=== PATIENT | male | born 1955 | race Caucasian/White ===

== ENCOUNTER 2023-04-25 09:44 | Outpatient (CLI) | payer MEDICARE, SELFPAY ==
--- NOTE | 2023-04-25 09:52 | USR_ITS ---
PROCEDURE INFORMATION: Exam: US Duplex Bilateral Lower Extremity Arteries Exam date and time: 04/25/2023 10:04 AM Age: 67 years old Clinical indication: Other: Claudication; Additional info: Intermittent claudication of bilateral lower limbs TECHNIQUE: Imaging protocol: Real-time ultrasound scan of the arteries of the bilateral lower extremities with 2-D dodd scale, color Doppler flow and spectral waveform analysis. Images documented and saved. COMPARISON: No relevant prior studies available. FINDINGS: Right iliac artery: Calcification without occlusion or high-grade stenosis. Normal waveform. Right common femoral artery: No occlusion or high-grade stenosis. Normal waveform. Right profunda femoris artery: Proximal interrogated segment is patent with normal waveform. Right superficial femoral artery: Occluded. Right popliteal artery: Occluded. Right calf/foot arteries: Occluded anterior and posterior tibial arteries. Occluded dorsalis pedis artery. Peroneal artery not interrogated. Left iliac artery: Interrogated proximal left iliac artery at the level of the bifurcation is narrowed with monophasic waveform. Subsequent occlusion. Left common femoral artery: Occluded. Left profunda femoris artery: Not interrogated. Left superficial femoral artery: Occluded. Left popliteal artery: Occluded. Left calf/foot arteries: Occluded anterior and posterior tibial arteries as well as the peroneal artery and dorsalis pedis artery. US/CV arterial duplex [facility] [id number] IMPRESSION: Extensive bilateral lower extremity arterial occlusion as above.
== END 2023-04-25 09:45 | disposition home or self-care (01) ==
PROVIDERS: PCP Family Medicine; Visit Provider Family Medicine
DX: I70.213 Atherosclerosis of native arteries of extremities with intermittent claudication, bilateral legs (principal)
CPT/HCPCS: 93925

== ENCOUNTER 2025-02-03 06:39 | Outpatient (CLI) | payer MEDICARE, SELFPAY ==
--- NOTE | 2025-02-03 06:51 | CTR_ITS ---
PROCEDURE INFORMATION: Exam: CT Neck With Contrast Exam date and time: 02/03/2025 7:20 AM Age: 69 years old Clinical indication: Dysphagia / difficulty swallowing; All over neck swelling causing difficulty with swallowing and SOB x 2 months. PT has had a round of antibiotics with no improvement; Additional info: Neoplasm uncertain behavior oropharynx TECHNIQUE: Imaging protocol: Computed tomography of the neck with contrast. Radiation optimization: All CT scans at this facility use at least one of these dose optimization techniques: automated exposure control; mA and/or kV adjustment per patient size (includes targeted exams where dose is matched to clinical indication); or iterative reconstruction. Contrast material: OMNI 350; Contrast volume: 100 ml; Contrast route: INTRAVENOUS (IV); COMPARISON: No relevant prior studies available. RADIATION DOSE METRICS: Total DLP (mGy-cm): 140.94 FINDINGS: Salivary glands: Normal. Glands are normal in size. Pharynx: 3.9 cm mass from the left lateral wall of the oropharynx. This is likely a neoplastic process. Larynx: Unremarkable. Epiglottis is normal. Thyroid: Normal. No enlarged or calcified nodules. Trachea: Visualized trachea is unremarkable. Lungs: Unremarkable as visualized. Lymph nodes: Cervical adenopathy is present as well. The largest lymph node is 1.4 x 1.1 cm in size. There is a mass within the medial aspect of the left sternocleidomastoid muscle (4:39) and this measures approximately 2 cm in maximum dimension. It could represent either local invasion or adenopathy. 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 Bones/joints: Unremarkable. No acute fracture. Soft tissues: See Lymph nodes finding. CT/CT neck w con* [id number] IMPRESSION: Oropharyngeal mass with metastases.
[2025-02-03 07:18] LABS: Blood Urea Nitrogen 10 mg/dL (8-23)
[2025-02-03] MEDS: iohexol 350 mg/mL 500 mL Btl (per mL) IV (07:23)
== END 2025-02-03 06:40 | disposition home or self-care (01) ==
LOC: RAD 06:42
PROVIDERS: Radiology Neuroradiology; PCP Family Medicine; Visit Provider Otolaryngology
DX: D37.05 Neoplasm of uncertain behavior of pharynx (principal)
CPT/HCPCS: 70491; 82565; 84520

== ENCOUNTER 2025-03-06 14:52 | Outpatient (CLI) | payer MEDICARE, SELFPAY ==
--- NOTE | 2025-03-06 15:09 | PETR_ITS ---
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 Then, PET images were obtained. Attenuation corrected images were constructed using the CT scan. Fused images of PET and CT were reviewed. The standardized uptake values (SUV) reported below are maximum values within a region of interest, expressed in gm/ml. Exam includes orbital meatal line to mid-thigh. SUV normalization method: BodyWeight Radiopharmaceutical: 10.62 mCi F-18 FDG (Fluorodeoxyglucose), IV. Time of imaging post radiopharmaceutical administration: 45 minutes Injection site: RIGHT AC COMPARISON: CT neck w con* [id number] 02/03/2025 7:20 AM FINDINGS: Brain: No abnormal increased uptake in the visualized brain is noted. Regions of photopenia/lack of uptake are identified in the posterior left parietal lobe corresponding to regions of encephalomalacia/volume loss. Pharynx: A radiotracer avid 3.4 x 2.6 cm left oropharyngeal mass demonstrates an SUV max 26.8 on series 301, image 55. Larynx: No abnormal uptake. Lungs, pleura and trachea: No abnormal uptake. A left lung calcified granuloma is noted. A non radiotracer avid solid 3 mm posterior right upper lobe nodule on CT image 103 is identified. A pleural-based solid right middle lobe nodule measures 3 mm on image 139. An anterior right middle lobe nodule on the minor fissure measures 6 mm on image 139. A 2 mm solid nodule in the left upper limb on image 139 is present. Dependent streaky density in the lower lobes likely represents atelectasis or scarring. Heart: Normal physiologic uptake. Mediastinal space: No abnormal uptake. Liver: No abnormal uptake. Gallbladder and biliary ducts: No abnormal uptake. Pancreas: No abnormal uptake. Spleen: No abnormal uptake. Adrenal glands: There is uptake in the bilateral adrenal glands without definite nodularity, SUV max 3.0 on the right on image 172 and SUV max 3.4 on the left on image 177. Kidneys and ureters: Normal physiologic uptake. A low-density non radiotracer avid lesion arising from the left renal inferior pole measuring 5.1 x 4.[address] image 202 is noted likely related to a benign cyst. Stomach and bowel: No abnormal uptake. Reproductive: There is moderate prominence of the prostate gland without definitive evidence of focal abnormal uptake. Vasculature: No abnormal uptake. Multifocal regions of atherosclerotic calcification are identified including within the coronary arteries. Lymph nodes: Radiotracer avid left sided cervical lymph nodes are noted deep to the sternocleidomastoid muscle, SUV max 12.4, the largest and most radiotracer avid of which measures 1.6 cm in short axis on series 202, image 62. This may be reactive, secondary to infectious or inflammatory involvement. These lymph nodes are superior to the level of the hyoid bone and extend posterior to the left parotid gland. A radiotracer avid right axillary lymph node is present, SUV max 3.8 measuring 1.2 x 0.6 cm on series 301, image 107. Uptake in a left axillary lymph node is noted, SUV max 2.2 on image 115 measuring 1.7 x 0.4 cm on series 202, image 116. A precarinal lymph node demonstrates elevated uptake, SUV max 2.8 on image 114 measuring 7 mm in short axis on CT image 114. An inferior right pretracheal lymph node measures 1.1 x [address] image 111, SUV max 3.0. A right hilar lymph node is radiotracer avid, SUV max 3.9 on image 119. Elevated uptake in the left hilar lymph node is present, SUV max 4.5 on image 113. The size of the hilar lymph nodes is not well delineated without intravenous contrast, however, these lymph nodes do not appear pathologically enlarged. Skeleton: The bones appear demineralized. Focal elevated uptake is noted in the region of the inferior clivus on image 49 (SUV max 6.2) without a definite correlating lesion on the CT images. Uptake between the odontoid process and anterior ring of C1 is likely related to degenerative inflammatory changes, and this uptake appears separate from a more inferiorly located small benign-appearing cystic structure along the anterior aspect of the odontoid process. Soft tissues: No abnormal uptake in the visualized head, neck, chest, abdomen, pelvis, and extremities. METRICS: Mediastinal blood pool: SUV max 2.4, SUV mean 2.2 Liver uptake: SUV max 3.0, SUV mean 2.6 PET/PET skull to thigh INIT [id number] IMPRESSION: 1. A left oropharyngeal mass is radiotracer avid consistent with malignancy. 2. Radiotracer avid left-sided cervical lymph nodes are consistent with metastases. 3. Uptake within non pathologically enlarged bilateral axillary lymph nodes and within non pathologically enlarged mediastinal and bilateral hilar lymph nodes is noted, which can be related to infectious or inflammatory involvement or metastases. 4. Focal elevated uptake in the inferior clivus is noted without a definite correlating lesion on the CT images. This uptake may be inflammatory in nature. A metastatic focus is less likely but not entirely excluded. Correlation with brain MRI with and without contrast would be useful for further characterization of this region. 5. Mild uptake in the bilateral adrenal glands without definite nodularity may be physiologic or inflammatory in nature. Metastatic lesions are less likely. 6. Small non radiotracer avid bilateral pulmonary nodules are noted. Assessment of small nodules can be limited by PET-CT. 7. Additional nonurgent findings as detailed above.
== END 2025-03-06 14:53 | disposition home or self-care (01) ==
LOC: RAD 14:52
PROVIDERS: PCP Family Medicine; Visit Provider Otolaryngology
DX: C10.2 Malignant neoplasm of lateral wall of oropharynx (principal); J98.4 Other disorders of lung; R91.8 Other nonspecific abnormal finding of lung field; R59.0 Localized enlarged lymph nodes; E27.9 Disorder of adrenal gland, unspecified; N40.0 Benign prostatic hyperplasia without lower urinary tract symptoms; I25.84 Coronary atherosclerosis due to calcified coronary lesion
CPT/HCPCS: 78815; A9552

== ENCOUNTER 2025-03-10 08:47 | Oncology outpatient (recurring) (ONCR) | payer MEDICARE, SELFPAY ==
--- NOTE | 2025-03-10 10:24 | N.ONRAD NP_ITS ---
Radiation Oncology New Patient Visit Patient: Yo London MR#: [id number] : 1955> Age: 69> Sex: Male> Dictated by: Culeln Maguire DO/PILI Date of Service: 03/10/2025 Referring Physician(s) : Dr. 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), Diagnosed 03/09/2025 (active), B97.7 - papillomavirus as the cause of diseases classified elsewhere, Diagnosed 03/09/2025 (active) and C77.0 - secondary and unspecified malignant neoplasm of lymph nodes of head, face and neck, Diagnosed 03/09/2025 (active).LEFT TONSIL MD-SCC, HPV+, 3.4 X 2.6(26.8), DEEP TO LT SCM 1.6(12.4), MULTIPLE LT LN+, ABN UPTAKE ON PET FOR CLIVIS-MRI PENDING, FORMER SMOKER OF 75 PYSH-QUIT JUL 2023, +ETOH WHISKEY OCCASSIONALLY, - WT LOSS, ODYNOPHAGIA X 2 MO, BX 02/18/2025 SPEC SIZE 2.3 X 1.8 X 1CM, 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 Chief Complaint / History of Present Illness: Patient is here to discuss treatment for his left tonsillar cancer. This is a pleasant 69 BEARDED male with recent diagnosis of MD-SCC-HPV + of the left tonsil. Patient has noted odynophagia for the last 2 months. Patient was seen by Dr. Grayson Hickman who noted a large hard mass centered in the left tonsil that appeared to be adherent to the deep musculature of the oropharynx that extended into the upper hypopharynx but not into the piriform sinus. Exam noted normal-appearing larynx and piriform sinus base of tongue and postcricoid area. CT soft tissues in the neck on 02/03/2025 showed a 3.9 cm mass in the left lateral wall of the oropharynx there was also a left sided lymph node measuring 1.4 x 1.1 cm and the medial aspect of the LEFT SCM measuring 2 cm. BX on 02/18/2025 returned MD-SCC that was HPV + of the left tonsil specimen size 2.3 x 1.8 x 1 cm. PET/CT on 03/06/2025 showed an avid 3.4 x 2.6 cm left oropharyngeal mass (26.8), lymph node deep to the SCM on the left side measuring 1.6 cm (12.4) multiple other lymph nodes of the neck. There was a clivus abnormality noted and MRI of the brain recommended. 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 He was a [id number] smoker quitting in July 2023 and occasionally drinks whiskey. He denies any weight loss fevers chills or night sweats. Patient saw medical oncology on 03/05/2025. He has scheduled an evaluation by Dr. Escobar at [facility] on March 12. He has a reevaluation on March 19 with medical oncology. Current Medications: clopidogrel (Plavix) 75 mg PO DAILY memantine (Namenda) 5 mg PO BID paroxetine HCl 10 mg PO DAILY Allergies: No Known Allergies Medical History: Active ETOH occasionally Surgical History: Biopsy as above Family History: N/C Social History: Retired assembling men at [employer] Diet: Patient reports difficulty swallowing and eating, sometimes experiencing pain while eating. Occasionally consumes soft foods. No Active Chemotherapy Current Complaints / Review of Systems: . Vital Signs: Performed on 03/10/2025 8:49 AM BMI - 22.522 kg/m2, Height - 67 in, Weight - 143.8 lbs, Temperature - 97.5 f, Pulse - 107 /min (high), Respiration - 18 /min, O2 Sat - 91 % (low), Pain - 5, Fatigue - 0 and BP - 146/ 83 mm(hg)(high/). Physical Exam: AAO X3 . FULL MONACO, LEFT POST AURICULAR LN ~ 2.5CM NON PAINFUL. Abnormality in the left tonsillar pillar extending toward midline of the uvula which may be secondary to cautery injury from BX oral cavity. Patient is edentulous. Lungs clear to auscultation heart is regular rate and rhythm abdomen soft nontender extremities intact x 4. Vertebral exam shows no bony tenderness. normal gait Performance Status: KPS 90 Pathology: Primary, c09.1 - malignant neoplasm of tonsillar pillar (anterior) (posterior), Diagnosed 03/09/2025 (active) , Primary, b97.7 - papillomavirus as the cause of diseases classified elsewhere, Diagnosed 03/09/2025 (active) and Primary, c77.0 - secondary and unspecified malignant neoplasm of lymph nodes of head, face and neck, Diagnosed 03/09/2025 (active) . 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), Diagnosed 03/09/2025 (active), B97.7 - papillomavirus as the cause of diseases classified elsewhere, Diagnosed 03/09/2025 (active) and C77.0 - secondary and unspecified malignant neoplasm of lymph nodes of head, face and neck, Diagnosed 03/09/2025 (active).LEFT TONSIL MD-SCC, HPV+, 3.4 X 2.6(26.8), DEEP TO LT SCM 1.6(12.4), MULTIPLE LT LN+, ABN UPTAKE ON PET FOR CLIVIS-MRI PENDING, FORMER SMOKER OF 75 PYSH-QUIT JUL 2023, +ETOH WHISKEY OCCASSIONALLY, - WT LOSS, ODYNOPHAGIA X 2 MO, BX 02/18/2025 SPEC SIZE 2.3 X 1.8 X 1CM, 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 Questions asked and answered to their satisfaction Patient to have surgical evaluation at [facility] on March 12. Reevaluation by medical oncology on 03/19/2025 If chemoradiation is a primary treatment for curative intent, we would recommend a feeding tube and port placement. MRI BRAIN to be scheduled regarding the clivus abnormality. CT SIM in the future after removal of his monaco, and port placement and feeding tube performed. Plan IMRT based XRT to 70cGy Signed by: 03/10/2025 10:22:27 AM <<Signature on File>> Time spent with patient/brother/review of records/preparation of consult: CPT Code: CPT Code:
== END 2025-03-17 23:59 | disposition home or self-care (01) ==
PROVIDERS: PCP Family Medicine; Visit Provider Radiology Radiation Oncology
DX: C09.1 Malignant neoplasm of tonsillar pillar (anterior) (posterior) (principal); C77.0 Secondary and unspecified malignant neoplasm of lymph nodes of head, face and neck; B97.7 Papillomavirus as the cause of diseases classified elsewhere
CPT/HCPCS: 99205

== ENCOUNTER → 2025-03-23 08:24 | Outpatient (BNVA) | payer MEDICARE, SELFPAY | PROVIDERS: PCP Family Medicine; Visit Provider Student in an Organized Health Care Education/Training Program | DX: Z95.828 Presence of other vascular implants and grafts (principal); D49.0 Neoplasm of unspecified behavior of digestive system | CPT/HCPCS: 99204 ==

== ENCOUNTER 2025-03-27 12:49 | Outpatient (CLI) | payer MEDICARE, SELFPAY ==
--- NOTE | 2025-03-27 13:00 | MR_ITS ---
WS: [id number] MRI BRAIN WITH AND WITHOUT CONTRAST HISTORY: D49.0 - Neoplasm of unspecified behavior of digestive system, history of throat cancer. Possible lesion in the inferior clivus as seen on PET/CT. Patient has known metastatic lymph nodes. COMPARISON: PET/CT 03/06/2025. TECHNIQUE: Multiplanar imaging performed through the brain with MultiHance 14 ml's IV. Diffusion abnormality noted in the posterior LEFT parietal lobe in an area of volume loss. There several foci of increased signal on the diffusion imaging and low signal on the ADC map suggesting these are acute infarcts. This is in an area of volume loss. There is also enhancement on the postcontrast sequence centrally surrounded by the volume loss. There is increased T2 and FLAIR signal surrounding the area of volume loss. No additional diffusion abnormalities identified. Extensive T2 and FLAIR signal hyperintensities in the supratentorial white matter. Areas of gliosis and scarring in the posterior LEFT parietal lobe with volume loss. Mild bilateral cerebral and cerebellar volume loss. Clivus and pituitary gland are normal. Visualized posterior fossa and brainstem are also normal. Focal nodular enhancement centered in the volume loss of the posterior RIGHT parietal lobe in the acute changes on the diffusion imaging. The area of enhancement measures 10 x 6 mm. This may be a small vascular malformation or subacute infarct. Patient has a known large LEFT oropharyngeal mass measuring at least 3.4 x 2.1 cm. This was described on the neck CT of 02/03/2025. Dural venous sinuses are normal. Paranasal sinuses: Well aerated with no significant disease. Mastoid air cells: Normal. Calvarium and scalp: No destructive bone lesions in the calvarium. The appearance of the clivus is is normal. No signal changes to correspond to the findings on the recent PET/CT. There is no enhancement. Degenerative changes involving the odontoid process. Mild soft tissue enhancement surrounds the od ontoid process may be related to arthropathy. MR/MR head wo/w con [id number] IMPRESSION: 1. No signal changes or enhancement in the clivus. 2. Patient has a known LEFT oropharyngeal mass which has been previously descr ibed on PET/CT and neck CT. Reidentified measuring 3.4 x 2.1 cm. 3. Focal area of volume loss with surrounding gliosis in the posterior LEFT pa rietal lobe. There is central enhancement associated with the diffusion abnorma lity. Decreased signal on the ADC mapping. Cannot exclude a small central infar ct surrounded by chronic volume loss and gliosis. There is central enhancement in the area of diffusion abnormality which may indicate a subacute infarct. Rec ommend short-term follow-up by MRI brain with and without contrast. Consider fo llow-up in 4 to 6 weeks. This will help determine whether there is metastatic d isease or infarct or vascular malformation. 4. No additional areas of abnormal enhancement within the brain. 5. Mild enhancement surrounding the odontoid process with soft tissue thickeni ng. This can be seen with arthropathy or early metastatic disease. No obvious b one destruction. No soft tissue mass was identified on the recent CT of 02/04/20 25 although there was bony sclerosis. Changes more likely related to arthropath y than metastatic disease. This can also be reevaluated in 4 to 6 weeks on the recommended MRI.
[2025-03-27] MEDS: gadobenate dimeglumine 20 mL vial 14 ML IV (13:49)
== END 2025-03-27 12:50 | disposition home or self-care (01) ==
LOC: RAD 12:53
PROVIDERS: PCP Family Medicine; Visit Provider Radiology Radiation Oncology
DX: D49.0 Neoplasm of unspecified behavior of digestive system (principal); R93.89 Abnormal findings on diagnostic imaging of other specified body structures; G93.89 Other specified disorders of brain
CPT/HCPCS: 70553

== ENCOUNTER 2025-03-31 10:45 | Day surgery (SDC) | payer MEDICARE, SELFPAY ==
[2025-03-31] VITALS (7 sets, daily range): BP systolic 115–144; BP diastolic 75–88; PULSE 86–96; RESP 17–22; TEMP 36.4–36.6; O2SAT 91–96; BMI 22.5
--- NOTE | 2025-03-31 10:52 | SC_ITS ---
WS: [id number] C-arm FL for CVA [id number] REASON FOR EXAM: Port-A-Cath placement FINDINGS: Chemotherapy infusion port overlying the right chest with infusion catheter trans right internal jugular vein with the tip in the mid SVC. SC/C-arm FL for CVA [id number] IMPRESSION: Chemotherapy infusion port and catheter placement as above.
--- NOTE | 2025-03-31 11:51 | W.PM.OPSUD ---
Surgery/Procedure H&P Update DATE OF PROCEDURE: March 31, 2025 DATE H&P PERFORMED: 03/23/25 H&P UPDATE INFORMATION: I have reviewed H&P completed within last 30 days, I have examined patient prior to procedure, No changes to prior documentation and Risks and benefits of the procedure reviewed PLANNED PROCEDURE: Operation Date: 03/31/25 12:30 Proposed Procedures p Port a Cath Insertion [id number] D49.0(Not Applicable) - Maximiliano Nj MD
[2025-03-31] MEDS: ceFAZolin 2,000 mg SDV 2000 MG IVP (12:40)
[2025-03-31] MEDS: BUPivacaine 0.25% INJ 10 mL INJECTION (12:59)
[2025-03-31] MEDS: lidocaine-epi 1% 20 mL INJ INJECTION (12:59)
[2025-03-31] MEDS: heparin, porcine 1,000 unit/mL INJ 10 mL 10000 UNIT IRRIGATION (13:00)
--- NOTE | 2025-03-31 13:06 | P.OP_ITS ---
Operative Report Date of procedure: March 31, 2025 Pre-op diagnosis: Oropharyngeal carcinoma Post-op diagnosis: same Post-op findings: Tip of catheter at atriocaval junction confirmed with intraoperative fluoroscopy Implants: Port-A-Cath Specimens removed/disposition: N/A Pathology: none sent Surgeon: Maximiliano Nj MD [employer] Operator: N/A Anesthesia: MAC Estimated blood loss (mL): 10 Complications: N/A Findings: Tip of catheter at atriocaval junction confirmed with intraoperative fluoroscopy Condition: stable Disposition: same day Brief History: 69-year-old male who presented with oropharyngeal carcinoma. Needs port for chemotherapy. Discussed risk and benefits and patient agreed to proceed with Port-A-Cath insertion. Procedure: Patient was brought into the operating room and a timeout was carried out. Procedure was done under MAC. Patient was placed supine with the arms tucked and in Trendelenburg. Patient was prepped and draped in the usual sterile fashion. Using ultrasound guidance the right internal jugular vein was accessed. A guidewire was then placed down to the atriocaval junction using fluoroscopy. The finder needle was removed and the guidewire was secured. I then turned my attention to creating a pocket over the right chest. Make sure to locally infiltrated using plain lidocaine and bupivacaine at the site of the pocket and throughout the tunnel site. I confirmed adequate hemostasis at the pocket. I then proceeded to place the port that was already preassembled and flushed with heparinized saline and the chest pocket. I tunneled the catheter from the chest to the neck at the site where I accessed the internal jugular vein. I measured and adjusted the length of the catheter so it would reach the atrial caval junction. At this point, I used a dilator to dilate the tract into the internal jugular vein using fluoroscopy. I removed the guidewire and proceeded to thread the central venous catheter through the introducer. In the process, I removed the sheath as a completely pushed the catheter into the internal jugular vein. I then confirmed adequate placement of the catheter by performing intraoperative interpretation of fluoroscopy. The tip of the catheter was confirmed to be placed in the atriocaval junction. There were no kinks noted throughout the trajectory of the catheter. I then proceeded to test the port and was satisfied with its functionality. I proceeded to flushed the catheter without any issues. I then hep-locked the port. Skin was closed using deep dermal 3-0 Vicryl, subcuticular 4-0 Monocryl, and Dermabond. Patient was then transferred to PACU without any complications.
--- NOTE | 2025-03-31 14:05 | ANE.PACU2 ---
Inpatient post-anesthesia follow up: Airway intact: Yes Vital signs: Temperature 97.8 F Pulse Rate 86 Respiratory Rate 18 Blood Pressure 128/76 Pulse Oximetry 94 Oxygen Delivery Me thod Room Air Oxygen Flow Rate Fraction of Inspir ed Oxygen Hydration adequate: Yes Nausea and vomiting: No Pain level: 1 Mental status: Baseline
== END 2025-03-31 14:09 | disposition home or self-care (01) ==
PROVIDERS: PCP Family Medicine; Visit Provider Student in an Organized Health Care Education/Training Program
PROC: (CPT 36561; principal; 2025-03-31 12:30)
DX: C10.9 Malignant neoplasm of oropharynx, unspecified (principal)
CPT/HCPCS: 36561; 76000; 77001; C1788; J0690; J1644; J2250; J2704; J3490; J7030; J9999

== ENCOUNTER 2025-04-14 08:30 | Oncology outpatient (recurring) (ONCR) | payer MEDICARE, SELFPAY ==
[2025-03-19 09:57] LABS: Hematocrit 45.3 % (37-53); Hemoglobin 14.50 g/dL (11.27-16.99); Mean Corpuscular HGB Conc 32.0 g/dL (30-55); Mean Corpuscular Hemoglobin 28.3 pg (27-33); Mean Corpuscular Volume 88.5 fl (82-101); Nucleated Red Blood Cells % 0 %; Platelet Count 326 10^3/cmm (157-399); Red Blood Count 5.12 10^6/uL (3.85-5.65); White Blood Count 10.68 10^3/uL (3.29-11.43)
[2025-03-19 10:30] LABS: Alanine Aminotransferase 12 U/L (0-41); Albumin Level 3.9 g/dL (3.5-5.2); Alkaline Phosphatase 131 U/L (40-130); Anion Gap 13.7 (5-19); Aspartate Amino Transferase 17 U/L (0-40); Blood Urea Nitrogen 10 mg/dL (8-23); Calcium 8.9 mg/dL (8.5-10.5); Carbon Dioxide 26 mmol/L (22-29); Chloride 103 mmol/L (98-107); Creatinine Clr Calc Pharmacy 81.3852; Globulin 3.6 g/dL (1.3-4.6); Glucose 121 mg/dL (65-115); Osmolality Calculated 288 mOsm/kg (285-295); Potassium 3.7 mmol/L (3.5-5.1); Sodium 139 mmol/L (136-145); Thyroid Stimulating Hormone 2.75 uIU/mL (0.27-4.20); Total Protein 7.5 g/dL (6.6-8.7)
--- NOTE | 2025-03-19 11:02 | ONCRAD EPV_ITS ---
Radiation Oncology Established Patient Visit Patient: Yo London [id number] : 1955 Age: 69 Sex: Male Dictated by: Dr. Kareen Warren Date of Service: 03/19/2025 Referring Physician(s) : Dr. 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 He visited with the surgeons at [facility] in [place]. He was not a surgical candidate. He is here today to discuss the radiation and chemotherapy as a treatment option. He still has an MRI pending. He did say that the doctors in [place] found another spot on his tongue when they did a scope. [phone] Diagnosis: C09.1 - Malignant neoplasm of tonsillar pillar (anterior) (posterior), Diagnosed 03/09/2025 (Active) B97.7 - Papillomavirus as the cause of diseases classified elsewhere, Diagnosed 03/09/2025 (Active) C77.0 - Secondary and unspecified malignant neoplasm of lymph nodes of head, face and neck, Diagnosed 03/09/2025 (Active) Radiotherapy to Date: Current History: Current Medications: Allergies: No Known Allergies Current Complaints / Review of Systems: . Vital Signs: Performed on 03/19/2025 10:46 AM BMI - 22.71 kg/m2, Height - 67 in, Weight - 145 lbs, Temperature - 97.8 f, Pulse - 102 /min (high), Respiration - 16 /min, O2 Sat - 96 %, Pain - 3, Fatigue - 0 and BP - 126/ 77 mm(hg). Physical Exam: General: Alert and oriented x 3. No acute distress. Performance Status: 90 Lab: None pending. Pathology: Primary, c09.1 - malignant neoplasm of tonsillar pillar (anterior) (posterior), Diagnosed 03/09/2025 (active) , Primary, b97.7 - papillomavirus as the cause of diseases classified elsewhere, Diagnosed 03/09/2025 (active) and Primary, c77.0 - secondary and unspecified malignant neoplasm of lymph nodes of head, face and neck, Diagnosed 03/09/2025 (active) . 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 We talked about how patient will either have surgery with postop radiation or they will have radiation and chemotherapy for head and neck malignancies. We discussed the simulation process. We reviewed the daily treatment regiment. We reviewed the risks and side effects both acute and long-term. At this point he is in agreement. He had no additional questions or concerns. He will be undergoing simulation today and will begin his treatments coordinating with his chemotherapy regimen. Plan for 7-week course of treatment along with combined chemotherapy Signed by: 03/19/2025 11:02:00 AM <<Signature on File>> Time spent with patient: 30 CPT Code: CPT Code:
[2025-04-06 10:14] LABS: Hematocrit 44.0 % (37-53); Hemoglobin 14.20 g/dL (11.27-16.99); Mean Corpuscular HGB Conc 32.3 g/dL (30-55); Mean Corpuscular Hemoglobin 28.1 pg (27-33); Mean Corpuscular Volume 87.0 fl (82-101); Nucleated Red Blood Cells % 0 %; Platelet Count 252 10^3/cmm (157-399); Red Blood Count 5.06 10^6/uL (3.85-5.65); White Blood Count 10.76 10^3/uL (3.29-11.43)
[2025-04-06 10:30] LABS: Alanine Aminotransferase 14 U/L (0-41); Albumin Level 4.1 g/dL (3.5-5.2); Alkaline Phosphatase 132 U/L (40-130); Anion Gap 13.6 (5-19); Aspartate Amino Transferase 20 U/L (0-40); Blood Urea Nitrogen 8 mg/dL (8-23); Calcium 8.9 mg/dL (8.5-10.5); Carbon Dioxide 26 mmol/L (22-29); Chloride 98 mmol/L (98-107); Creatinine Clr Calc Pharmacy 81.7624; Globulin 3.3 g/dL (1.3-4.6); Glucose 89 mg/dL (65-115); Osmolality Calculated 276 mOsm/kg (285-295); Potassium 3.6 mmol/L (3.5-5.1); Sodium 134 mmol/L (136-145); Total Protein 7.4 g/dL (6.6-8.7)
--- NOTE | 2025-04-07 08:40 | ONCRAD TMN_ITS ---
Radiation Oncology Weekly Treatment Management Patient: Yo London MR#: [id number] : 1955 Attending Physician: Mj Maguire Date of Service: 04/07/2025 Referring Physician(s) : Dr. 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 ID: [id number], Energy: 6X, Dose/Fx (cGy): 200, #Fx: 35, Dose Correction (cGy): 0, Total Dose Delivered (cGy): 200, Start Date: 04/07/2025, Elapsed Days: 0 Reason for visit: The patient is being seen today as part of their regularly scheduled weekly on treatment visits to assess for acute toxicities from radiotherapy. Review of Systems: First day of treatment. Patient does not have a feeding tube. We did advise that he should make arrangements for that. This is his first chemo also today. Labs look adequate. Vital Signs: Performed on 04/07/2025 8:17 AM BMI - 22.804 kg/m2, Height - 67 in, Weight - 145.6 lbs, Temperature - 97.78 f, Pulse - 111 /min (high), Respiration - 20 /min, O2 Sat - 96 %, Pain - 0, Fatigue - 0 and BP - 145/ 83 mm(hg)(high/). Physical Exam: AAOx3. Skin intact Imaging: Radiation therapy imaging related to accurate target localization (i.e. KV, MV and CBCT) was reviewed. Appropriate changes, if any, were made to ensure treatment accuracy. Plan: Continue XRT First chemotherapy today Advised to get a feeding tube. At least 2500 waldemar/day and 64 ounces of fluids. Signed by: Mj Maguire 04/07/2025 8:39:32 AM
[2025-04-07] MEDS: sodium chlor 0.9% + KCl 20 mEq 20 MEQ/1,000 ML BAG 500 MEQ IV (09:12)
[2025-04-07] MEDS: magnesium sulfate premix 2 GM/50 ML PIGGYBACK IV (09:13)
[2025-04-07 09:24] VITALS: BP 125/70; PULSE 80; RESP 17; TEMP 37; O2SAT 91
[2025-04-07] MEDS: aprepitant 130 mg/18 ml SDV IVP (11:32)
[2025-04-07] MEDS: dexamethasone 4 mg/mL INJ 5 mL 12 MG IVP (11:39)
[2025-04-07] MEDS: diphenhydrAMINE 50 mg/mL SDV 1mL 25 MG IVP (11:43)
[2025-04-07] MEDS: SODIUM CHLORIDE 0.9% IV (12:26)
[2025-04-07] MEDS: CISPLATIN IV (12:26)
[2025-04-07] MEDS: FUROsemide 10 mg/mL SDV 2mL 20 MG IVP (14:51)
[2025-04-07 16:12] VITALS: BP 180/92; PULSE 17; RESP 17; TEMP 36.6; O2SAT 94
[2025-04-14 09:04] LABS: Hematocrit 38.8 % (37-53); Hemoglobin 13.00 g/dL (11.27-16.99); Mean Corpuscular HGB Conc 33.5 g/dL (30-55); Mean Corpuscular Hemoglobin 28.8 pg (27-33); Mean Corpuscular Volume 86.0 fl (82-101); Nucleated Red Blood Cells % 0 %; Platelet Count 212 10^3/cmm (157-399); Red Blood Count 4.51 10^6/uL (3.85-5.65); White Blood Count 7.50 10^3/uL (3.29-11.43)
[2025-04-14 09:17] LABS: Alanine Aminotransferase 26 U/L (0-41); Albumin Level 3.6 g/dL (3.5-5.2); Alkaline Phosphatase 106 U/L (40-130); Anion Gap 18.4 (5-19); Aspartate Amino Transferase 27 U/L (0-40); Blood Urea Nitrogen 51 mg/dL (8-23); Calcium 7.9 mg/dL (8.5-10.5); Carbon Dioxide 26 mmol/L (22-29); Chloride 93 mmol/L (98-107); Creatinine Clr Calc Pharmacy 12.5788; Globulin 3.4 g/dL (1.3-4.6); Glucose 114 mg/dL (65-115); Magnesium 1.5 mg/dL (1.7-2.3); Osmolality Calculated 293 mOsm/kg (285-295); Potassium 3.4 mmol/L (3.5-5.1); Sodium 134 mmol/L (136-145); Total Protein 7.0 g/dL (6.6-8.7)
[2025-04-14] MEDS: magnesium sulfate premix 2 GM/50 ML PIGGYBACK IV (10:22)
--- NOTE | 2025-04-14 10:53 | ONCRAD TMN_ITS ---
Radiation Oncology Weekly Treatment Management Patient: Yo London MR#: [id number] : 1955 Attending Physician: Dr. Kareen Warren Date of Service: 04/14/2025 Referring Physician(s) : Dr. 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 ID: [id number], Energy: 6X, Dose/Fx (cGy): 200, #Fx: 6 / 35, Dose Correction (cGy): 0, Total Dose Delivered (cGy): 1,200, Start Date: 04/07/2025, End Date: 04/14/2025, Elapsed Days: 7 Reason for visit: The patient is being seen today as part of their regularly scheduled weekly on treatment visits to assess for acute toxicities from radiotherapy. Review of Systems: Patient is in good spirits. He denies any changes in bowel or bladder habits. He says the only thing he has noticed is maybe mild fatigue on occasion. Vital Signs: Performed on 04/14/2025 8:45 AM BMI - 23.055 kg/m2 (high), Height - 67 in, Weight - 147.2 lbs, Temperature - 97 f, Pulse - 101 /min (high), Respiration - 17 /min, O2 Sat - 95 % (low), Pain - 0, Fatigue - 0 and BP - 111/ 70 mm(hg). Physical Exam: No changes on exam Imaging: Radiation therapy imaging related to accurate target localization (i.e. KV, MV and CBCT) was reviewed. Appropriate changes, if any, were made to ensure treatment accuracy. Plan: Will continue with treatments as planned Signed by: Dr. Kareen Warren 04/14/2025 10:52:55 AM
--- NOTE | 2025-04-14 10:53 | PC.NUTR ---
Met with Yo and talked through several handouts re: high calorie/ high protein diet. Recently he has not had much of an appetite, so discussed eating 3-5 meals/snacks each day. When asked what he liked to snack on, he said chips and dip or cookies or little Shonna's. Stressed the importance of protein with carbs and gave several handouts with meal plans in the 1800-200kcal range. Also discussed tips for adding calories to whatever he is eating. Lastly discussed smoothies or milkshakes or protein shakes from the store. 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 Not sure of compliance. Am available for additional consulting.
[2025-04-14 12:26] LABS: Alanine Aminotransferase 21 U/L (0-41); Albumin Level 3.4 g/dL (3.5-5.2); Alkaline Phosphatase 103 U/L (40-130); Anion Gap 17.7 (5-19); Aspartate Amino Transferase 25 U/L (0-40); Blood Urea Nitrogen 47 mg/dL (8-23); Calcium 7.3 mg/dL (8.5-10.5); Carbon Dioxide 24 mmol/L (22-29); Chloride 95 mmol/L (98-107); Creatinine Clr Calc Pharmacy 14.2196; Globulin 2.5 g/dL (1.3-4.6); Glucose 87 mg/dL (65-115); Osmolality Calculated 288 mOsm/kg (285-295); Potassium 3.7 mmol/L (3.5-5.1); Sodium 133 mmol/L (136-145); Total Protein 5.9 g/dL (6.6-8.7)
[2025-04-14 12:32] LABS: Glucose Urine UA Trace (Normal); Nitrate Urine Negative (Negative); Specific Gravity, Urine 1.015 (1.005-1.030)
[2025-04-14 12:36] LABS: Add Urine Microscopic? YES
== END 2025-04-14 23:59 | disposition home or self-care (01) ==
PROVIDERS: Internal Medicine; Nurse Practitioner Family; PCP Family Medicine; Visit Provider Radiology Radiation Oncology
DX: Z53.9 Procedure and treatment not carried out, unspecified reason; Z51.0 Encounter for antineoplastic radiation therapy; C09.1 Malignant neoplasm of tonsillar pillar (anterior) (posterior); B97.7 Papillomavirus as the cause of diseases classified elsewhere; C77.0 Secondary and unspecified malignant neoplasm of lymph nodes of head, face and neck; D49.0 Neoplasm of unspecified behavior of digestive system; R03.0 Elevated blood-pressure reading, without diagnosis of hypertension; Z79.899 Other long term (current) drug therapy
CPT/HCPCS: 36415; 36591; 77300; 77301; 77334; 77338; 77386; 77470; 80053; 81001; 83615; 83735; 84443; 85025; 96365; 96367; 96368; 96375; 96413; 96415; 99024; 99214; 99215; J0185; J1100; J1200; J1938; J2469; J3475; J3480; J3490; J7030; J7040; J7050; J9060; J9999

== ENCOUNTER 2025-04-17 08:54 | Oncology outpatient (recurring) (ONCR) | payer MEDICARE, SELFPAY ==
[2025-04-16 12:14] LABS: Anion Gap 16.8 (5-19); Blood Urea Nitrogen 48 mg/dL (8-23); Calcium 8.1 mg/dL (8.5-10.5); Carbon Dioxide 22 mmol/L (22-29); Chloride 95 mmol/L (98-107); Glucose 137 mg/dL (65-115); Magnesium 1.5 mg/dL (1.7-2.3); Osmolality Calculated 285 mOsm/kg (285-295); Potassium 3.8 mmol/L (3.5-5.1); Sodium 130 mmol/L (136-145)
[2025-04-16 13:03] VITALS: BP 185/90; PULSE 77; RESP 17; TEMP 36.4; O2SAT 98
[2025-04-17 09:20] LABS: Hematocrit 36.2 % (37-53); Hemoglobin 12.00 g/dL (11.27-16.99); Mean Corpuscular HGB Conc 33.1 g/dL (30-55); Mean Corpuscular Hemoglobin 28.7 pg (27-33); Mean Corpuscular Volume 86.6 fl (82-101); Nucleated Red Blood Cells % 0 %; Platelet Count 198 10^3/cmm (157-399); Red Blood Count 4.18 10^6/uL (3.85-5.65); White Blood Count 7.51 10^3/uL (3.29-11.43)
[2025-04-17 09:36] LABS: Alanine Aminotransferase 19 U/L (0-41); Albumin Level 3.7 g/dL (3.5-5.2); Alkaline Phosphatase 107 U/L (40-130); Anion Gap 19.3 (5-19); Aspartate Amino Transferase 27 U/L (0-40); Blood Urea Nitrogen 42 mg/dL (8-23); Calcium 8.4 mg/dL (8.5-10.5); Carbon Dioxide 21 mmol/L (22-29); Chloride 100 mmol/L (98-107); Globulin 3.3 g/dL (1.3-4.6); Glucose 125 mg/dL (65-115); Osmolality Calculated 294 mOsm/kg (285-295); Potassium 4.3 mmol/L (3.5-5.1); Sodium 136 mmol/L (136-145); Total Protein 7.0 g/dL (6.6-8.7)
== END 2025-04-17 23:59 | disposition home or self-care (01) ==
PROVIDERS: Nurse Practitioner; Nurse Practitioner Family; PCP Family Medicine; Visit Provider Radiology Radiation Oncology
DX: D49.0 Neoplasm of unspecified behavior of digestive system (principal)
CPT/HCPCS: 36591; 77336; 77386; 80048; 80053; 83735; 85025; 96360; J7030

== ENCOUNTER 2025-04-28 08:35 | Oncology outpatient (recurring) (ONCR) | payer MEDICARE, SELFPAY ==
[2025-05-05] MEDS: sodium chlor 0.9% + KCl 20 mEq 20 MEQ/1,000 ML BAG 500 MEQ IV (09:55)
== END 2025-04-28 23:59 | disposition home or self-care (01) ==
PROVIDERS: PCP Family Medicine; Visit Provider Internal Medicine Medical Oncology
DX: Z53.9 Procedure and treatment not carried out, unspecified reason (principal); Z45.2 Encounter for adjustment and management of vascular access device

== ENCOUNTER 2025-05-06 08:30 | Oncology outpatient (recurring) (ONCR) | payer MEDICARE, SELFPAY ==
[2025-04-20 09:53] LABS: Hematocrit 38.4 % (37-53); Hemoglobin 12.50 g/dL (11.27-16.99); Mean Corpuscular HGB Conc 32.6 g/dL (30-55); Mean Corpuscular Hemoglobin 28.8 pg (27-33); Mean Corpuscular Volume 88.5 fl (82-101); Nucleated Red Blood Cells % 0 %; Platelet Count 243 10^3/cmm (157-399); Red Blood Count 4.34 10^6/uL (3.85-5.65); White Blood Count 8.80 10^3/uL (3.29-11.43)
[2025-04-20 10:10] LABS: Alanine Aminotransferase 13 U/L (0-41); Albumin Level 3.9 g/dL (3.5-5.2); Alkaline Phosphatase 113 U/L (40-130); Anion Gap 19.2 (5-19); Aspartate Amino Transferase 25 U/L (0-40); Blood Urea Nitrogen 41 mg/dL (8-23); Calcium 8.5 mg/dL (8.5-10.5); Carbon Dioxide 21 mmol/L (22-29); Chloride 103 mmol/L (98-107); Globulin 3.8 g/dL (1.3-4.6); Glucose 109 mg/dL (65-115); Magnesium 1.2 mg/dL (1.7-2.3); Osmolality Calculated 299 mOsm/kg (285-295); Potassium 4.2 mmol/L (3.5-5.1); Sodium 139 mmol/L (136-145); Total Protein 7.7 g/dL (6.6-8.7)
--- NOTE | 2025-04-21 13:41 | ONCRAD TMN_ITS ---
Radiation Oncology Weekly Treatment Management Patient: Surya Mcgee MR#: [id number] : 1955> Attending Physician: Dr. Kareen Warren Date of Service: 04/21/2025 Referring Physician(s) : Dr. 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 ID: [id number], Energy: 6X, Dose/Fx (cGy): 200, #Fx: , Dose Correction (cGy): 0, Total Dose Delivered (cGy): 1,686.7, Start Date: 04/07/2025, Elapsed Days: 14 Reason for visit: The patient is being seen today as part of their regularly scheduled weekly on treatment visits to assess for acute toxicities from radiotherapy. Review of Systems: Patient has had no issues with treatment thus far. He is swallowing and eating without issue. He is having trouble with his creatinine and his chemotherapy has been put on hold Vital Signs: Performed on 04/21/2025 10:00 AM BMI - 22.867 kg/m2, Height - 67 in, Weight - 146 lbs, Temperature - 97 f, Pulse - 108 /min (high), Respiration - 16 /min, O2 Sat - 96 %, Pain - 0, Fatigue - 0 and BP - 170/ 91 mm(hg)(high). Physical Exam: No changes in his skin Imaging: Radiation therapy imaging related to accurate target localization (i.e. KV, MV and CBCT) was reviewed. Appropriate changes, if any, were made to ensure treatment accuracy. Plan: Will continue with treatments as planned. They are skipping chemo this week because of his creatinine. He will have additional labs next week to see if he can proceed with combined therapy. Signed by: Dr. Kareen Warren 04/21/2025 1:39:22 PM
[2025-04-23 09:24] LABS: Alanine Aminotransferase 13 U/L (0-41); Albumin Level 3.8 g/dL (3.5-5.2); Alkaline Phosphatase 111 U/L (40-130); Anion Gap 18.5 (5-19); Aspartate Amino Transferase 19 U/L (0-40); Blood Urea Nitrogen 36 mg/dL (8-23); Calcium 8.2 mg/dL (8.5-10.5); Carbon Dioxide 21 mmol/L (22-29); Chloride 102 mmol/L (98-107); Globulin 3.5 g/dL (1.3-4.6); Glucose 95 mg/dL (65-115); Magnesium 1.2 mg/dL (1.7-2.3); Osmolality Calculated 292 mOsm/kg (285-295); Potassium 4.5 mmol/L (3.5-5.1); Sodium 137 mmol/L (136-145); Total Protein 7.3 g/dL (6.6-8.7)
[2025-04-23] MEDS: magnesium sulfate premix 2 GM/50 ML PIGGYBACK IV (10:31)
--- NOTE | 2025-04-24 07:39 | US_ITS ---
WS: [id number] ULTRASOUND RENAL TECHNIQUE: Ultrasound examination of both kidneys. CLINICAL INFORMATION: ACUTE KIDNEY INJURY COMPARISON: None. FINDINGS: RIGHT: RIGHT renal cyst measuring 1.6 x 1.6 x 1.5 cm in the superior pole. Right kidney is normal in size and appearance. Echogenicity: Normal. Cortical thickness: 1.2 cm; Normal. Hydronephrosis: None. Perinephric fluid: None. Right kidney measures: 11.1 cm x 5.0 cm x 5.4 cm. LEFT: Inferior LEFT renal cyst measuring 5.6 x 4.9 x 4.3 cm with proteinaceous debris. Left kidney is normal in size and appearance. Echogenicity: Normal. Cortical thickness: 1.1 cm; Normal. Hydronephrosis: None. Perinephric fluid: None. Left kidney measures: 11.1 cm x 5.6 cm x 5.3 cm. Normal visualized aorta. Enlarged prostate measuring 3.6 x 3.8 x 4.5 cm. Bladder is decompressed. US/US renal BI* [id number] IMPRESSION: 1. No hydronephrosis in either kidney. 2. Bilateral renal cysts described above largest in the LEFT. 3. Enlarged prostate. Recommend correlation with PSA.
[2025-04-28 08:55] LABS: Hematocrit 37.9 % (37-53); Hemoglobin 12.20 g/dL (11.27-16.99); Mean Corpuscular HGB Conc 32.2 g/dL (30-55); Mean Corpuscular Hemoglobin 28.1 pg (27-33); Mean Corpuscular Volume 87.3 fl (82-101); Nucleated Red Blood Cells % 0 %; Platelet Count 380 10^3/cmm (157-399); Red Blood Count 4.34 10^6/uL (3.85-5.65); White Blood Count 3.87 10^3/uL (3.29-11.43)
[2025-04-28 09:27] LABS: Alanine Aminotransferase 12 U/L (0-41); Albumin Level 4.2 g/dL (3.5-5.2); Alkaline Phosphatase 130 U/L (40-130); Anion Gap 17.2 (5-19); Aspartate Amino Transferase 19 U/L (0-40); Blood Urea Nitrogen 29 mg/dL (8-23); Calcium 9.4 mg/dL (8.5-10.5); Carbon Dioxide 22 mmol/L (22-29); Chloride 102 mmol/L (98-107); Globulin 3.6 g/dL (1.3-4.6); Glucose 101 mg/dL (65-115); Magnesium 1.3 mg/dL (1.7-2.3); Osmolality Calculated 290 mOsm/kg (285-295); Potassium 4.2 mmol/L (3.5-5.1); Prostate Specific Antigen 2.230 ng/mL (0-4); Sodium 137 mmol/L (136-145); Total Protein 7.8 g/dL (6.6-8.7)
--- NOTE | 2025-04-28 09:40 | ONCRAD TMN_ITS ---
Radiation Oncology Weekly Treatment Management Patient: Yo London MR#: [id number] : 1955 Attending Physician: Mj Maguire Date of Service: 04/28/2025 Referring Physician(s) : Dr. 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 ID: [id number], Energy: 6X, Dose/Fx (cGy): 200, #Fx: 14 / 35, Dose Correction (cGy): 0, Total Dose Delivered (cGy): 2,800, Start Date: 04/07/2025, Elapsed Days: 21 Reason for visit: The patient is being seen today as part of their regularly scheduled weekly on treatment visits to assess for acute toxicities from radiotherapy. Review of Systems: Patient here for 1 treatment visit. He is unable to have concurrent chemotherapy again this week due to kidney dysfunction. He voices no radiation base complaints. Vital Signs: Performed on 04/28/2025 8:39 AM BMI - 22.24 kg/m2, Height - 67 in, Weight - 142 lbs, Temperature - 96.9 f, Pulse - 110 /min (high), Respiration - 18 /min, O2 Sat - 93 % (low), Pain - 0, Fatigue - 0 and BP - 169/ 71 mm(hg)(high/). Physical Exam: AAOx3. Skin intact Imaging: Radiation therapy imaging related to accurate target localization (i.e. KV, MV and CBCT) was reviewed. Appropriate changes, if any, were made to ensure treatment accuracy. Plan: Continue XRT Reevaluate labs next week for chemotherapy Signed by: Mj Maguire 04/28/2025 9:39:44 AM
[2025-05-04 09:04] VITALS: BP 137/79; PULSE 114; RESP 17; TEMP 36.2; O2SAT 95
[2025-05-04 09:30] LABS: Hematocrit 38.1 % (37-53); Hemoglobin 12.40 g/dL (11.27-16.99); Mean Corpuscular HGB Conc 32.5 g/dL (30-55); Mean Corpuscular Hemoglobin 28.3 pg (27-33); Mean Corpuscular Volume 87.0 fl (82-101); Nucleated Red Blood Cells % 0 %; Platelet Count 317 10^3/cmm (157-399); Red Blood Count 4.38 10^6/uL (3.85-5.65); White Blood Count 6.77 10^3/uL (3.29-11.43)
[2025-05-04 09:53] LABS: Alanine Aminotransferase 18 U/L (0-41); Albumin Level 4.1 g/dL (3.5-5.2); Alkaline Phosphatase 135 U/L (40-130); Anion Gap 17.2 (5-19); Aspartate Amino Transferase 25 U/L (0-40); Blood Urea Nitrogen 32 mg/dL (8-23); Calcium 8.8 mg/dL (8.5-10.5); Carbon Dioxide 23 mmol/L (22-29); Chloride 104 mmol/L (98-107); Globulin 3.8 g/dL (1.3-4.6); Glucose 105 mg/dL (65-115); Osmolality Calculated 297 mOsm/kg (285-295); Potassium 4.2 mmol/L (3.5-5.1); Sodium 140 mmol/L (136-145); Total Protein 7.9 g/dL (6.6-8.7)
[2025-05-04 10:19] VITALS: BP 133/75; PULSE 98; RESP 17; TEMP 36.2; O2SAT 96
--- NOTE | 2025-05-05 09:18 | ONCRAD TMN_ITS ---
Radiation Oncology Weekly Treatment Management Patient: Yo London MR#: [id number] : 1955 Attending Physician: Mj Maguire Date of Service: 05/05/2025 Referring Physician(s) : Dr. 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 ID: [id number], Energy: 6X, Dose/Fx (cGy): 200, #Fx: 19 / 35, Dose Correction (cGy): 0, Total Dose Delivered (cGy): 3,800, Start Date: 04/07/2025, End Date: 05/05/2025, Elapsed Days: 28 Reason for visit: The patient is being seen today as part of their regularly scheduled weekly on treatment visits to assess for acute toxicities from radiotherapy. Review of Systems: pt started XRT w/o FT. PT has lost 7 # since starting. Needs calorie intake. No chemo last week D/T kidney dysfunction. Vital Signs: Performed on 05/05/2025 9:02 AM BMI - 21.363 kg/m2, Height - 67 in, Weight - 136.4 lbs, Temperature - 97.6 f, Pulse - 123 /min (high), Respiration - 18 /min, O2 Sat - 98 %, Pain - 0, Fatigue - 0 and BP - 122/ 74 mm(hg). Physical Exam: AAO x3. Skin intact. Dehydration noted. Imaging: Radiation therapy imaging related to accurate target localization (i.e. KV, MV and CBCT) was reviewed. Appropriate changes, if any, were made to ensure treatment accuracy. Plan: PT started XRT w/o FT Need FEEDING TUBE SCAR. Signed by: Mj Maguire 05/05/2025 9:17:00 AM
[2025-05-05 09:21] LABS: Alanine Aminotransferase 17 U/L (0-41); Albumin Level 4.0 g/dL (3.5-5.2); Alkaline Phosphatase 125 U/L (40-130); Anion Gap 16.1 (5-19); Aspartate Amino Transferase 25 U/L (0-40); Blood Urea Nitrogen 29 mg/dL (8-23); Calcium 8.7 mg/dL (8.5-10.5); Carbon Dioxide 21 mmol/L (22-29); Chloride 103 mmol/L (98-107); Globulin 3.5 g/dL (1.3-4.6); Glucose 87 mg/dL (65-115); Osmolality Calculated 287 mOsm/kg (285-295); Potassium 4.1 mmol/L (3.5-5.1); Sodium 136 mmol/L (136-145); Total Protein 7.5 g/dL (6.6-8.7)
[2025-05-05] MEDS: sodium chlor 0.9% + KCl 20 mEq 20 MEQ/1,000 ML BAG 500 MEQ IV (09:58)
[2025-05-05] MEDS: magnesium sulfate premix 2 GM/50 ML PIGGYBACK IV (09:58)
[2025-05-05] MEDS: diphenhydrAMINE 50 mg/mL SDV 1mL 25 MG IVP (11:27)
[2025-05-05] MEDS: FUROsemide 10 mg/mL SDV 2mL 20 MG IVP (13:23)
[2025-05-06 10:45] VITALS: BP 104/59; PULSE 95; RESP 17; TEMP 36.2; O2SAT 96
== END 2025-05-06 23:59 | disposition home or self-care (01) ==
PROVIDERS: Internal Medicine Medical Oncology; Nurse Practitioner Family; PCP Family Medicine; Visit Provider Radiology Radiation Oncology
DX: Z53.9 Procedure and treatment not carried out, unspecified reason; Z51.0 Encounter for antineoplastic radiation therapy; C09.1 Malignant neoplasm of tonsillar pillar (anterior) (posterior); B97.7 Papillomavirus as the cause of diseases classified elsewhere; C77.0 Secondary and unspecified malignant neoplasm of lymph nodes of head, face and neck
CPT/HCPCS: 36591; 76770; 77336; 77386; 80053; 82550; 83735; 84153; 85025; 96360; 96365; 96367; 96375; 96413; 99024; 99214; J1100; J1200; J1453; J1938; J2469; J3475; J3480; J3490; J7030; J7040; J7050; J9060; J9999

== ENCOUNTER 2025-05-13 08:25 | Oncology outpatient (recurring) (ONCR) | payer MEDICARE, SELFPAY ==
[2025-05-07 10:40] VITALS: BP 109/64; PULSE 90; RESP 17; TEMP 36.3; O2SAT 94
[2025-05-07 11:12] LABS: Alanine Aminotransferase 24 U/L (0-41); Albumin Level 4.0 g/dL (3.5-5.2); Alkaline Phosphatase 110 U/L (40-130); Anion Gap 20.2 (5-19); Aspartate Amino Transferase 34 U/L (0-40); Blood Urea Nitrogen 27 mg/dL (8-23); Calcium 8.9 mg/dL (8.5-10.5); Carbon Dioxide 19 mmol/L (22-29); Chloride 104 mmol/L (98-107); Globulin 3.4 g/dL (1.3-4.6); Glucose 91 mg/dL (65-115); Osmolality Calculated 293 mOsm/kg (285-295); Potassium 4.2 mmol/L (3.5-5.1); Sodium 139 mmol/L (136-145); Total Protein 7.4 g/dL (6.6-8.7)
[2025-05-07 12:54] VITALS: BP 114/73; PULSE 90; RESP 17; TEMP 36.4; O2SAT 94
--- NOTE | 2025-05-11 09:07 | ONCRAD TMN_ITS ---
Radiation Oncology Weekly Treatment Management Patient: Yo London MR#: [id number] : 1955 Attending Physician: Mj Maguire Date of Service: 05/11/2025 Referring Physician(s) : Dr. 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 ID: [id number], Energy: 6X, Dose/Fx (cGy): 200, #Fx: , Dose Correction (cGy): 0, Total Dose Delivered (cGy): 4,400, Start Date: 04/07/2025, Elapsed Days: Reason for visit: The patient is being seen today as part of their regularly scheduled weekly on treatment visits to assess for acute toxicities from radiotherapy. Review of Systems: Complains of 6 out of 10 pain in the mouth. Patient already has MMW. He saw Dr. Nj on 05/07/2025 and declined a PEG tube. He is down 2 pounds since last visit. He is down 11 pounds (145) since consult. Vital Signs: Performed on 05/11/2025 8:48 AM BMI - 21.113 kg/m2, Height - 67 in, Weight - 134.8 lbs, Temperature - 97.4 f, Pulse - 117 /min (high), Respiration - 18 /min, O2 Sat - 96 %, Pain - 6, Fatigue - 0 and BP - 132/ 75 mm(hg). Physical Exam: AAO x 3. Skin intact. Patient with moderate thrush noted in the oral cavity. Imaging: Radiation therapy imaging related to accurate target localization (i.e. KV, MV and CBCT) was reviewed. Appropriate changes, if any, were made to ensure treatment accuracy. Plan: Diflucan 200 mg today and then 1 tablet daily till finished (7 days) called into [facility]. Machine is down at the present time today and patient will hold treatment till tomorrow. Continue XRT Pt did pear picker Diflucan. Signed by: Mj Maguire 05/12/2025 8:43:10 AM
[2025-05-12 09:00] LABS: Hematocrit 34.2 % (37-53); Hemoglobin 11.40 g/dL (11.27-16.99); Mean Corpuscular HGB Conc 33.3 g/dL (30-55); Mean Corpuscular Hemoglobin 28.6 pg (27-33); Mean Corpuscular Volume 85.7 fl (82-101); Nucleated Red Blood Cells % 0 %; Platelet Count 149 10^3/cmm (157-399); Red Blood Count 3.99 10^6/uL (3.85-5.65); White Blood Count 12.74 10^3/uL (3.29-11.43)
[2025-05-12 09:19] LABS: Alanine Aminotransferase 21 U/L (0-41); Albumin Level 3.9 g/dL (3.5-5.2); Alkaline Phosphatase 107 U/L (40-130); Anion Gap 21.0 (5-19); Aspartate Amino Transferase 24 U/L (0-40); Blood Urea Nitrogen 30 mg/dL (8-23); Calcium 8.6 mg/dL (8.5-10.5); Carbon Dioxide 19 mmol/L (22-29); Chloride 100 mmol/L (98-107); Globulin 3.2 g/dL (1.3-4.6); Glucose 78 mg/dL (65-115); Osmolality Calculated 287 mOsm/kg (285-295); Potassium 4.0 mmol/L (3.5-5.1); Sodium 136 mmol/L (136-145); Total Protein 7.1 g/dL (6.6-8.7)
[2025-05-12] MEDS: magnesium sulfate premix 2 GM/50 ML PIGGYBACK IV (10:06)
[2025-05-12] MEDS: sodium chlor 0.9% + KCl 20 mEq 20 MEQ/1,000 ML BAG 500 MEQ IV (10:06)
[2025-05-12] MEDS: diphenhydrAMINE 50 mg/mL SDV 1mL 25 MG IVP (12:00)
[2025-05-12] MEDS: FUROsemide 10 mg/mL SDV 2mL 20 MG IVP (14:39)
[2025-05-12 16:04] VITALS: BP 127/78; PULSE 80; RESP 16; TEMP 36.3; O2SAT 97
== END 2025-05-17 23:59 | disposition home or self-care (01) ==
PROVIDERS: Internal Medicine Medical Oncology; Nurse Practitioner; PCP Family Medicine; Visit Provider Radiology Radiation Oncology
DX: Z51.0 Encounter for antineoplastic radiation therapy (principal); C09.1 Malignant neoplasm of tonsillar pillar (anterior) (posterior); B97.7 Papillomavirus as the cause of diseases classified elsewhere; C77.0 Secondary and unspecified malignant neoplasm of lymph nodes of head, face and neck
CPT/HCPCS: 77336; 77386; 80053; 85025; 96360; 96367; 96368; 96375; 96413; 99024; 99214; J1100; J1200; J1453; J1938; J2469; J3475; J3480; J3490; J7030; J7040; J7050; J9060; J9999

== ENCOUNTER 2025-06-01 09:00 | Oncology outpatient (recurring) (ONCR) | payer MEDICARE, SELFPAY ==
[2025-05-19 08:56] LABS: Hematocrit 35.8 % (37-53); Hemoglobin 11.80 g/dL (11.27-16.99); Mean Corpuscular HGB Conc 33.0 g/dL (30-55); Mean Corpuscular Hemoglobin 28.2 pg (27-33); Mean Corpuscular Volume 85.4 fl (82-101); Nucleated Red Blood Cells % 0 %; Platelet Count 161 10^3/cmm (157-399); Red Blood Count 4.19 10^6/uL (3.85-5.65); White Blood Count 12.44 10^3/uL (3.29-11.43)
[2025-05-19 09:17] LABS: Alanine Aminotransferase 29 U/L (0-41); Albumin Level 4.0 g/dL (3.5-5.2); Alkaline Phosphatase 127 U/L (40-130); Anion Gap 26.4 (5-19); Aspartate Amino Transferase 27 U/L (0-40); Blood Urea Nitrogen 32 mg/dL (8-23); Calcium 9.0 mg/dL (8.5-10.5); Carbon Dioxide 16 mmol/L (22-29); Chloride 99 mmol/L (98-107); Globulin 3.2 g/dL (1.3-4.6); Glucose 80 mg/dL (65-115); Osmolality Calculated 290 mOsm/kg (285-295); Potassium 4.4 mmol/L (3.5-5.1); Sodium 137 mmol/L (136-145); Total Protein 7.2 g/dL (6.6-8.7)
[2025-05-19] MEDS: magnesium sulfate premix 2 GM/50 ML PIGGYBACK IV (10:14)
[2025-05-19] MEDS: sodium chlor 0.9% + KCl 20 mEq 20 MEQ/1,000 ML BAG 500 MEQ IV (10:14)
--- NOTE | 2025-05-19 11:23 | ONCRAD TMN_ITS ---
Radiation Oncology Weekly Treatment Management Patient: Yo London MR#: [id number] : 1955 Attending Physician: Dr. Kareen Warren Date of Service: 05/19/2025 Referring Physician(s) : Dr. 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 ID: [id number], Energy: 6X, Dose/Fx (cGy): 200, #Fx: 26 / 35, Dose Correction (cGy): 0, Total Dose Delivered (cGy): 5,200, Start Date: 04/07/2025, Elapsed Days: 42 Reason for visit: The patient is being seen today as part of their regularly scheduled weekly on treatment visits to assess for acute toxicities from radiotherapy. Review of Systems: Patient has continued to have increasing trouble swallowing. He refused to have a PEG placed. Vital Signs: Performed on 05/19/2025 8:48 AM BMI - 20.267 kg/m2, Height - 67 in, Weight - 129.4 lbs, Temperature - 97 f, Pulse - 104 /min (high), Respiration - 17 /min, O2 Sat - 99 %, Pain - 1, Fatigue - 0 and BP - 115/ 70 mm(hg). Physical Exam: On exam his skin is just mildly hyperpigmented. He is currently getting chemotherapy and sitting comfortably in his chemo chair. Imaging: Radiation therapy imaging related to accurate target localization (i.e. KV, MV and CBCT) was reviewed. Appropriate changes, if any, were made to ensure treatment accuracy. Plan: We talked about how his weight is dropped again this week. I brought him to boxes of the 350-calorie ensures. We talked about how he should be basically drinking all day long since he cannot drink very much and that should be his only priority. He verbalized understanding. He will be finished with his treatments next week. Signed by: Dr. Briana Warren 05/19/2025 11:21:47 AM
[2025-05-19] MEDS: diphenhydrAMINE 50 mg/mL SDV 1mL 25 MG IVP (11:32)
[2025-05-19] MEDS: FUROsemide 10 mg/mL SDV 2mL 20 MG IVP (14:30)
[2025-05-19 16:00] VITALS: BP 124/76; PULSE 84; RESP 17; TEMP 35.6; O2SAT 93
[2025-05-26 08:30] LABS: Hematocrit 35.8 % (37-53); Hemoglobin 11.70 g/dL (11.27-16.99); Mean Corpuscular HGB Conc 32.7 g/dL (30-55); Mean Corpuscular Hemoglobin 28.3 pg (27-33); Mean Corpuscular Volume 86.5 fl (82-101); Nucleated Red Blood Cells % 0 %; Platelet Count 225 10^3/cmm (157-399); Red Blood Count 4.14 10^6/uL (3.85-5.65); White Blood Count 10.80 10^3/uL (3.29-11.43)
[2025-05-26 08:50] LABS: Alanine Aminotransferase 44 U/L (0-41); Albumin Level 4.0 g/dL (3.5-5.2); Alkaline Phosphatase 145 U/L (40-130); Anion Gap 26.3 (5-19); Aspartate Amino Transferase 34 U/L (0-40); Blood Urea Nitrogen 39 mg/dL (8-23); Calcium 9.4 mg/dL (8.5-10.5); Carbon Dioxide 17 mmol/L (22-29); Chloride 100 mmol/L (98-107); Globulin 3.3 g/dL (1.3-4.6); Glucose 108 mg/dL (65-115); Magnesium 1.3 mg/dL (1.7-2.3); Osmolality Calculated 298 mOsm/kg (285-295); Potassium 4.3 mmol/L (3.5-5.1); Sodium 139 mmol/L (136-145); Total Protein 7.3 g/dL (6.6-8.7)
--- NOTE | 2025-05-26 09:18 | ONCRAD TMN_ITS ---
Radiation Oncology Weekly Treatment Management Patient: Everardo London MR#: [id number] : 1955 Attending Physician: Dr. Kareen Warren Date of Service: 05/26/2025 Referring Physician(s) : Dr. 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 ID: [id number], Energy: 6X, Dose/Fx (cGy): 200, #Fx: 31 / 35, Dose Correction (cGy): 0, Total Dose Delivered (cGy): 6,200, Start Date: 04/07/2025, End Date: 05/26/2025, Elapsed Days: 49 Reason for visit: The patient is being seen today as part of their regularly scheduled weekly on treatment visits to assess for acute toxicities from radiotherapy. Review of Systems: Pt continues to loose weight, another 4 lbs this week. He is trying to drink as best he can. Vital Signs: Performed on 05/26/2025 8:52 AM BMI - 19.641 kg/m2, Height - 67 in, Weight - 125.4 lbs, Temperature - 97.5 f, Pulse - 78 /min, Respiration - 17 /min, O2 Sat - 98 %, Pain - 7, Fatigue - 0 and BP - 110/ 69 mm(hg). Physical Exam: Skin is without changes, oral cavity is clear. Imaging: Radiation therapy imaging related to accurate target localization (i.e. KV, MV and CBCT) was reviewed. Appropriate changes, if any, were made to ensure treatment accuracy. Plan: Continue treatments as planned. IVF this week and two days next week. Signed by: Dr. Kareen Warren 05/26/2025 9:16:54 AM
[2025-05-26] MEDS: magnesium sulfate premix 2 GM/50 ML PIGGYBACK IV (09:29)
[2025-05-26] MEDS: sodium chlor 0.9% + KCl 20 mEq 20 MEQ/1,000 ML BAG 500 MEQ IV (09:29)
[2025-05-26 09:34] VITALS: BP 88/56; PULSE 102; RESP 16; TEMP 36.3; O2SAT 99
[2025-05-26] MEDS: diphenhydrAMINE 50 mg/mL SDV 1mL 25 MG IVP (10:40)
[2025-05-26] MEDS: FUROsemide 10 mg/mL SDV 2mL 20 MG IVP (12:59)
[2025-05-26 14:06] VITALS: BP 122/88; PULSE 80; RESP 16; TEMP 36.3; O2SAT 98
[2025-05-27 09:10] VITALS: BP 194/70; PULSE 67; RESP 17; TEMP 36.4; O2SAT 100
[2025-05-28 09:15] VITALS: BP 124/78; PULSE 88; RESP 17; TEMP 36.4; O2SAT 97
--- NOTE | 2025-06-01 09:01 | N.ONRD TS_ITS ---
Radiation Oncology Treatment Summary Patient: Surya>Everardo MR#: [id number] : 1955> Age: 70> Sex: Male Dictated by: Mj Maguire Date of Service: 06/01/2025 Referring Physician(s) : Dr. 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 ID: [id number], Energy: 6X, Dose/Fx (cGy): 200, #Fx: 35 / 35, Dose Correction (cGy): 0, Total Dose Delivered (cGy): 7,000, Start Date: 04/07/2025, End Date: 06/01/2025, Elapsed Days: 55 Vital Signs: Performed on 06/01/2025 8:31 AM BMI - 19.108 kg/m2, Height - 67 in, Weight - 122 lbs, Temperature - 96.5 f, Pulse - 75 /min, Respiration - 18 /min, O2 Sat - 98 %, Pain - 6, Fatigue - 0 and BP - 114/ 67 mm(hg). Clinical Summary: The patient tolerated RT well. Significant weight loss at 23 pounds. Patient started at 145 and lost down to 122. Patient refused a feeding tube which we had scheduled with surgery. We will start Diflucan in liquid form today. He will have a 7-day supply with 200 mg today and then 100 mg the next 6 days. He goes to [facility] in [place]. We will see him back on 16 June when he sees medical oncology. Plan: End of treatment today. Continue on the above medication until the skin reaction resolves. Follow up on 06/16/2025. Increase calorie count. Signed by: Mj Maguire>06/01/2025 9:00:31 AM <<Signature on File>>
[2025-06-01 09:23] LABS: Hematocrit 33.8 % (37-53); Hemoglobin 11.00 g/dL (11.27-16.99); Mean Corpuscular HGB Conc 32.5 g/dL (30-55); Mean Corpuscular Hemoglobin 28.2 pg (27-33); Mean Corpuscular Volume 86.7 fl (82-101); Nucleated Red Blood Cells % 0 %; Platelet Count 203 10^3/cmm (157-399); Red Blood Count 3.90 10^6/uL (3.85-5.65); White Blood Count 8.05 10^3/uL (3.29-11.43)
[2025-06-01 09:43] LABS: Alanine Aminotransferase 29 U/L (0-41); Albumin Level 3.9 g/dL (3.5-5.2); Alkaline Phosphatase 133 U/L (40-130); Anion Gap 23.9 (5-19); Aspartate Amino Transferase 29 U/L (0-40); Blood Urea Nitrogen 26 mg/dL (8-23); Calcium 8.7 mg/dL (8.5-10.5); Carbon Dioxide 16 mmol/L (22-29); Chloride 103 mmol/L (98-107); Globulin 3.1 g/dL (1.3-4.6); Glucose 89 mg/dL (65-115); Osmolality Calculated 292 mOsm/kg (285-295); Potassium 3.9 mmol/L (3.5-5.1); Sodium 139 mmol/L (136-145); Total Protein 7.0 g/dL (6.6-8.7)
[2025-06-01 10:14] VITALS: BP 113/75; PULSE 83; RESP 16; TEMP 36.1; O2SAT 95
== END 2025-06-01 23:59 | disposition home or self-care (01) ==
PROVIDERS: Internal Medicine Medical Oncology; Absent Provider Radiology Radiation Oncology; PCP Family Medicine; Visit Provider Nurse Practitioner
DX: Z53.9 Procedure and treatment not carried out, unspecified reason; Z51.0 Encounter for antineoplastic radiation therapy; C09.1 Malignant neoplasm of tonsillar pillar (anterior) (posterior); B97.7 Papillomavirus as the cause of diseases classified elsewhere; C77.0 Secondary and unspecified malignant neoplasm of lymph nodes of head, face and neck; Y84.2 Radiological procedure and radiotherapy as the cause of abnormal reaction of the patient, or of later complication, without mention of misadventure at the time of the procedure; L58.0 Acute radiodermatitis
CPT/HCPCS: 77336; 77386; 80053; 83735; 85025; 96360; 96367; 96368; 96375; 96413; 99024; 99214; J1100; J1200; J1453; J1938; J2469; J3475; J3480; J3490; J7030; J7040; J7050; J9060; J9999

== ENCOUNTER 2025-06-05 13:36 | Outpatient (CLI) | payer MEDICARE, SELFPAY ==
--- NOTE | 2025-06-05 13:45 | MRR_ITS ---
PROCEDURE INFORMATION: Exam: MR Head Without Contrast Exam date and time: 06/05/2025 2:29 PM Age: 70 years old Clinical indication: Abnormal findings; Abnormal radiologic findings of head/skull; Not specified; HX of throat cancer, diagnosed with throat CA. Pet positive clivus; Additional info: Mri head abnormality with short term f/u recommended, see head mri on 03/27/25 TECHNIQUE: Imaging protocol: Magnetic resonance imaging of the head without contrast. COMPARISON: MR head wo/w con [id number] 03/27/2025 1:20 PM FINDINGS: Brain: Redemonstration of old left parietal lobe encephalomalacia and faint hemosiderin staining. Centrally there is faint enhancement in this region as there was previously. The amount of surrounding T2 hyperintensity presumably arborist representative of gliosis has not changed significantly. Centrally there also appears to be restricted diffusion in this lesion. Mild patchy T2 hyperintensity in hemispheric white matter bilaterally most likely due to chronic microangiopathy. Cerebral ventricles: Normal. No ventriculomegaly. Bones: Unremarkable. Paranasal sinuses: Normal as visualized. No acute sinusitis. Mastoid air cells: Normal as visualized. No mastoid effusion. Orbital cavities: Unremarkable. Soft tissues: Unremarkable. 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
[2025-06-05] MEDS: gadobenate dimeglumine 20 mL vial IV (14:55)
== END 2025-06-05 13:37 | disposition home or self-care (01) ==
LOC: RAD 13:37
PROVIDERS: PCP Family Medicine; Visit Provider Nurse Practitioner Family
DX: R90.89 Other abnormal findings on diagnostic imaging of central nervous system (principal); G93.89 Other specified disorders of brain
CPT/HCPCS: 70553

== ENCOUNTER 2025-06-17 08:48 | Oncology outpatient (recurring) (ONCR) | payer MEDICARE, SELFPAY ==
[2025-06-08 11:56] VITALS: BP 117/75; PULSE 96; RESP 16; TEMP 36.3; O2SAT 93
[2025-06-08 12:30] VITALS: BP 124/74; PULSE 78; RESP 17; TEMP 36.6; O2SAT 96
[2025-06-09 09:04] VITALS: BP 124/78; PULSE 76; RESP 16; TEMP 36.3; O2SAT 96
[2025-06-09 10:06] VITALS: BP 137/83; PULSE 72; RESP 17; TEMP 36.2; O2SAT 93
[2025-06-10 08:58] VITALS: BP 122/73; PULSE 84; RESP 18; TEMP 36.6; O2SAT 94
[2025-06-15 14:53] VITALS: BP 108/68; PULSE 78; RESP 16; TEMP 36.6; O2SAT 97
[2025-06-15 15:50] LABS: Hematocrit 24.3 % (37-53); Hemoglobin 8.00 g/dL (11.27-16.99); Mean Corpuscular HGB Conc 32.9 g/dL (30-55); Mean Corpuscular Hemoglobin 28.3 pg (27-33); Mean Corpuscular Volume 85.9 fl (82-101); Nucleated Red Blood Cells % 0 %; Platelet Count 126 10^3/cmm (157-399); Red Blood Count 2.83 10^6/uL (3.85-5.65); White Blood Count 3.14 10^3/uL (3.29-11.43)
[2025-06-15 16:02] LABS: Alanine Aminotransferase 15 U/L (0-41); Albumin Level 2.8 g/dL (3.5-5.2); Alkaline Phosphatase 77 U/L (40-130); Anion Gap 18.1 (5-19); Aspartate Amino Transferase 19 U/L (0-40); Blood Urea Nitrogen 24 mg/dL (8-23); Calcium 7.6 mg/dL (8.5-10.5); Carbon Dioxide 22 mmol/L (22-29); Chloride 104 mmol/L (98-107); Globulin 2.4 g/dL (1.3-4.6); Glucose 80 mg/dL (65-115); Magnesium 1.2 mg/dL (1.7-2.3); Osmolality Calculated 295 mOsm/kg (285-295); Potassium 3.1 mmol/L (3.5-5.1); Sodium 141 mmol/L (136-145); Total Protein 5.2 g/dL (6.6-8.7)
--- NOTE | 2025-06-16 13:40 | ONCRAD EPV_ITS ---
Radiation Oncology Established Patient Visit Patient: Yo London [id number] : 1955 Age: 70 Sex: Male Dictated by: Mj Maguire Date of Service: 06/16/2025 Referring Physician(s) : Dr. 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 He still has difficulty eating and even liquids cause him pain. He is using of viscous lidocaine as needed. He was to getting IV fluids almost every day. He is short on time today will come back tomorrow to get fluids with potassium and magnesium added. He was utilizing 4 post cane. He is lost 3 pounds since last visit. Current Medications: amlodipine 5 mg PO DAILY cevimeline 1 cap PO TID clopidogrel (Plavix) 75 mg PO DAILY fluconazole (Diflucan) 100 mg orally; On day 1 - take BID, on days 2-7 take daily hydrocodone-acetaminophen 7.5-325 mg 1 tab PO Q4H PRN 30 days lidocaine HCl 2% (Lidocaine Viscous) 5 mL mucous membrane QID PRN memantine (Namenda) 5 mg PO BID [omeprazole 40 mg PO DAILY] ondansetron HCl 4 mg PO Q6H PRN paroxetine HCl 10 mg PO DAILY prochlorperazine maleate (Compazine) 10 mg PO Q4H PRN Allergies: No Known Allergies Current Complaints / Review of Systems: As above Vital Signs: Performed on 06/16/2025 12:59 PM BMI - 18.638 kg/m2, Height - 67 in, Weight - 119 lbs, Temperature - 98.3 f, Pulse - 102 /min (high), Respiration - 16 /min, O2 Sat - 98 %, Pain - 5, Fatigue - 0 and BP - 111/ 67 mm(hg). Physical Exam: General: Alert and oriented x 3. No acute distress. HEENT: Normocephalic, atraumatic. Extraocular Movements Intact: Pupils Equal, Round, Reactive to Light and Accommodation: Sclerae anicteric. Oral cavity is clear without lesions, masses or ulcers. NECK: Supple without supraclavicular or jugular lymphadenopathy. LUNGS: Clear to auscultation bilaterally without rales, rhonchi or wheeze. HEART: Regular rate and rhythm, normal S1 and S2 without murmur, gallop or rub. MUSCULOSKELETAL: No tenderness or percussion pain over the axial skeleton, scapulae or pelvis. ABDOMEN: Soft, nontender, nondistended without masses or organomegaly. Bowell sounds are present. EXTREMITIES: No peripheral edema is identified. Limited motor and sensory examination are grossly intact and symmetric bilaterally. NEUROLOGIC: Cranial nerves II ???XII are grossly intact. Normal sensation, strength 5/5 in all extremities, normal gait, no ataxia. Performance Status: KPS 70 Lab: None pending. Pathology: Primary, c09.1 - malignant neoplasm of tonsillar pillar (anterior) (posterior), Diagnosed 03/09/2025 (active) , Primary, b97.7 - papillomavirus as the cause of diseases classified elsewhere, Diagnosed 03/09/2025 (active) and Primary, c77.0 - secondary and unspecified malignant neoplasm of lymph nodes of head, face and neck, Diagnosed 03/09/2025 (active) . Imaging: See HPI Impression: Tonsillar carcinoma PLAN: Continue IV fluid management Return to see us in 3 weeks Continue increase in caloric intake. Signed by: 06/16/2025 1:38:28 PM <<Signature on File>> Time spent with patient: CPT Code: CPT Code:
[2025-06-17 09:58] VITALS: BP 105/59; PULSE 70; RESP 17; TEMP 36.4; O2SAT 96
[2025-06-17] MEDS: sodium chlor 0.9% + KCl 40 mEq 40 MEQ/1,000 ML BAG 250 MEQ IV (10:01)
[2025-06-17] MEDS: magnesium sulfate premix 2 GM/50 ML PIGGYBACK IV (10:02)
[2025-06-17 12:15] VITALS: BP 127/67; PULSE 69; RESP 16; TEMP 35.8; O2SAT 93
== END 2025-06-17 23:59 | disposition home or self-care (01) ==
PROVIDERS: Absent Provider Radiology Radiation Oncology; PCP Family Medicine; Visit Provider Nurse Practitioner
DX: C06.9 Malignant neoplasm of mouth, unspecified (principal); Z79.899 Other long term (current) drug therapy
CPT/HCPCS: 80053; 83735; 85025; 96360; 96365; 96366; 96368; 99024; 99213; J3475; J7030; J9999